=== PATIENT | female | born 1970 | race Hispanic/Latino ===

== ENCOUNTER 2018-12-09 08:21 | Emergency (ER) | payer SELFPAY ==
--- NOTE | 2018-12-09 09:22 | EDPHYS ---
Physician Documentation [facility] Name: Camelia Verdugo Age: 47 yrs Sex: Female : 1970 Arrival Date: 12/09/2018 Time: 08:26 Bed 8 Private MD: None, None ED Physician Curt Mckoy HPI: 12/09 09:20 This 47 yrs old Female presents to ER via Ambulatory with complaints of Rash pm1 to right Breast and back. 09:20 The patient's rash thought to be caused by an unknown cause. The rash is located on the pm1 right breast and right subscapular area. The rash can be described as raised. Onset: The symptoms/episode began/occurred 3 day(s) ago. Associated signs and symptoms: Pertinent positives: fever, nausea, vomiting, Pertinent negatives: burning sensation, Pain. Severity of symptoms: in the emergency department the symptoms are worse. The patient has not experienced similar symptoms in the past. The patient has not recently seen a physician. 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 - Social history:: Smoking status: Patient/guardian denies using tobacco. - Ebola Screening: : Patient negative for fever greater than or equal to 101.5 degrees Fahrenheit, and additional compatible Ebola Virus Disease symptoms Patient denies exposure to infectious person Patient denies travel to an Ebola-affected area in the 21 days before illness onset No symptoms or risks identified at this time. ROS: 09:20 Constitutional: Negative for fever, chills, and weight loss, Eyes: Negative for injury, pm1 pain, redness, and discharge, ENT: Negative for injury, pain, and discharge, Neck: Negative for injury, pain, and swelling, Cardiovascular: Negative for chest pain, palpitations, and edema, Respiratory: Negative for shortness of breath, cough, wheezing, and pleuritic chest pain, Abdomen/GI: Negative for abdominal pain, nausea, vomiting, diarrhea, and constipation, Back: Negative for injury and pain, MS/Extremity: Negative for injury and deformity. 09:20 Skin: Negative for injury, rash, and discoloration, Neuro: Negative for headache, weakness, numbness, tingling, and seizure. 09:20 Skin: Positive for rash, of the right subscapular area and right breast. Exam: 09:20 Constitutional: This is a well developed, well nourished patient who is awake, alert, pm1 and in no acute distress. Head/Face: Normocephalic, atraumatic. Neck: Trachea midline, no thyromegaly or masses palpated, and no cervical lymphadenopathy. Supple, full range of motion without nuchal rigidity, or vertebral point tenderness. No Meningismus. Chest/axilla: Normal chest wall appearance and motion. Nontender with no deformity. No lesions are appreciated. Cardiovascular: Regular rate and rhythm with a normal S1 and S2. No gallops, murmurs, or rubs. Normal PMI, no JVD. No pulse deficits. Respiratory: Lungs have equal breath sounds bilaterally, clear to auscultation and percussion. No rales, rhonchi or wheezes noted. No increased work of breathing, no retractions or nasal flaring. Abdomen/GI: Soft, non-tender, with normal bowel sounds. No distension or tympany. No guarding or rebound. No evidence of tenderness throughout. Back: No spinal tenderness. No costovertebral tenderness. Full range of motion. 09:20 Chest/axilla: Breasts: are normal, no acute changes. 09:20 Skin: Appearance: normal except for affected area, consistent with zoster, Leo Ramirez RN. Vital Signs: 08:41 BP 140 / 79; Pulse 69; Resp 16; Temp 97.9; Pulse Ox 97% on R/A; Weight 92 kg; Height 5 iw ft. 3 in. (160.02 cm); Pain 8/10; 08:41 Body Mass Index 35.93 (92.00 kg, 160.02 cm) iw MDM: 09:01 Patient medically screened. pm1 09:20 Data reviewed: vital signs. Data interpreted: Pulse oximetry: on room air is 97 %. pm1 Interpretation: normal. Counseling: I had a detailed discussion with the patient and/or guardian regarding: the historical points, exam findings, and any diagnostic results supporting the discharge/admit diagnosis, the need for outpatient follow up, to return to the emergency department if symptoms worsen or persist or if there are any questions or concerns that arise at home. Administered Medications: :44 Drug: Valtrex 1000 mg Route: PO; aa5 :45 Follow up: Response: Medication administered at discharge. aa5 :44 Drug: [place] 5 mg-325 mg 1 tabs Route: PO; 5 :45 Follow up: Response: Medication administered at discharge. aa5 Disposition: 12/09/18 09:21 Discharged to Home. Impression: Zoster [herpes zoster]. - Condition is Stable. - Discharge Instructions: Shingles. - Prescriptions for Tylenol- Codeine #3 300-30 mg Oral Tablet - take 2 tablet by ORAL route every 6 hours As needed; 30 tablet. Valtrex 1 g Oral Tablet - take 1 tablet by ORAL route every 8 hours for 7 days; 21 tablet. - Medication Reconciliation Form, Thank You Letter, Antibiotic Education, Prescription Opioid Use form. - Follow up: Emergency Department; When: As needed; Reason: Worsening of condition. Follow up: Private Physician; When: 2 - 3 days; Reason: Recheck today's complaints, Continuance of care, Re-evaluation by your physician. - Problem is new. - Symptoms have improved. Addendum: 12/11/2018 07:27 Co-signature as Attending Physician, Curt Mckoy MD. g s Signatures: Eloisa Gloria RN RN Ashley Morin RN RN aa5 Maximino Ivan, HEALTH PROMOTION OFFICER HEALTH PROMOTION OFFICER pm1 Curt Mckoy MD MD Corrections: (The following items were deleted from the chart) 12/09 09:47 09:21 12/09/2018 09:21 Discharged to Home. Impression: Zoster [herpes zoster]. aa5 Condition is Stable. Forms are Medication Reconciliation Form, Thank You Letter, Antibiotic Education, Prescription Opioid Use. Follow up: Emergency Department; When: As needed; Reason: Worsening of condition. Follow up: Private Physician; When: 2 - 3 days; Reason: Recheck today's complaints, Continuance of care, Re-evaluation by your physician. Problem is new. Symptoms have improved. pm1
--- NOTE | 2018-12-09 09:22 | ER ---
Nurse's Notes [facility] Name: Camelia Verdugo Age: 47 yrs Sex: Female : 1970 Arrival Date: 12/09/2018 Time: 08:26 Bed 8 Private MD: None, None Diagnosis: Zoster [herpes zoster] Presentation: 12/09 08:40 Presenting complaint: Patient states: rash around breast radiating to back X 3 days, iw painful to touch. Transition of care: patient was not received from another setting of care. Onset of symptoms was December 06, 2018. Risk Assessment: Do you want to hurt yourself or someone else? Patient reports no desire to harm self or others. Initial Sepsis Screen: Does the patient meet any 2 criteria? No. Patient's initial sepsis screen is negative. Does the patient have a suspected source of infection? No. Patient's initial sepsis screen is negative. Care prior to arrival: None. 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 - Social history:: Smoking status: Patient/guardian denies using tobacco. - Ebola Screening: : Patient negative for fever greater than or equal to 101.5 degrees Fahrenheit, and additional compatible Ebola Virus Disease symptoms Patient denies exposure to infectious person Patient denies travel to an Ebola-affected area in the 21 days before illness onset No symptoms or risks identified at this time. Screenin:02 Abuse screen: Denies threats or abuse. Nutritional screening: No deficits noted. aa5 Tuberculosis screening: No symptoms or risk factors identified. Fall Risk None identified. Assessment: 08:55 General: Appears uncomfortable, Behavior is calm, cooperative. Pain: Complains of pain aa5 in right lateral anterior chest and under right breast Pain radiates to right scapular area and right subscapular area Pain currently is 8 out of 10 on a pain scale. Quality of pain is described as burning, Pain began 2-3 days ago. Is continuous. Neuro: Level of Consciousness is awake, alert, obeys commands, Oriented to person, place, time, situation. Cardiovascular: Capillary refill < 3 seconds is brisk in bilateral fingers Patient's skin is warm and dry. Respiratory: Airway is patent Respiratory effort is even, unlabored, Respiratory pattern is regular, symmetrical. GI: No signs and/or symptoms were reported involving the gastrointestinal system. : No signs and/or symptoms were reported regarding the genitourinary system. EENT: No signs and/or symptoms were reported regarding the EENT system. Derm: Skin is pink, warm \T\ dry. Rash noted that is red, raised, on right lateral anterior chest and under right breast. Musculoskeletal: Range of motion: intact in all extremities. 09:45 Reassessment: Patient is alert, oriented x 3, equal unlabored respirations, skin aa5 warm/dry/pink. Vital Signs: 08:41 BP 140 / 79; Pulse 69; Resp 16; Temp 97.9; Pulse Ox 97% on R/A; Weight 92 kg; Height 5 iw ft. 3 in. (160.02 cm); Pain 8/10; 08:41 Body Mass Index 35.93 (92.00 kg, 160.02 cm) iw ED Course: 08:26 Patient arrived in ED. dp 08:27 None, None is Private Physician. dp 08:41 Triage completed. iw 08:43 Arm band placed on. iw 08:56 Ashley Morin, RN is Primary Nurse. aa5 08:58 Patient has correct armband on for positive identification. Placed in gown. Bed in low aa5 position. Call light in reach. Side rails up X 1. Adult w/ patient. 09:01 [facility] pm1 09:01 Curt Mckoy MD is Attending Physician. pm1 09:09 No provider procedures requiring assistance completed. aa5 09:45 Patient did not have IV access during this emergency room visit. aa5 Administered Medications: 09:44 Drug: Valtrex 1000 mg Route: PO; aa5 09:45 Follow up: Response: Medication administered at discharge. aa5 09:44 Drug: [place] 5 mg-325 mg 1 tabs Route: PO; aa5 09:45 Follow up: Response: Medication administered at discharge. aa5 Outcome: 09:21 Discharge ordered by . pm1 09:45 Discharged to home ambulatory, with family. aa5 09:45 Condition: stable 09:45 Discharge instructions given to patient, Instructed on discharge instructions, follow up and referral plans. medication usage, Demonstrated understanding of instructions, follow-up care, medications, Prescriptions given X 2. 09:47 Patient left the ED. aa5 Signatures: Eloisa Gloria RN RN iw Ashley Morin RN RN aa5 Maximino Iavn, MARYA LEGAL WORD PROCESSOR pm1 Sulaiman Parra Corrections: (The following items were deleted from the chart) 08:42 08:41 BP 140 / 79; Pulse 69bpm; Resp 16bpm; Pulse Ox 97% RA; Temp 97.9F; 92 kg; Height iw 5 ft. 3 in.; BMI: 35.9; iw 09:21 08:55 Pain: Complains of pain in right lateral anterior chest and under right breast aa5 Pain currently is 8 out of 10 on a pain scale. Quality of pain is described as burning, Pain began 2-3 days ago. Is continuous, aa5
[2018-12-09] MEDS ORDERED: HYDROCODONE/APAP 5/325 MG TAB ONE (09:56)
[2018-12-09] MEDS ORDERED: VALACYCLOVIR 500 MG TAB ONE (09:57)
== END 2018-12-09 09:47 | disposition home or self-care (01) ==
LOC: ER 08:21
DX: B02.9 Zoster without complications (principal)
CPT/HCPCS: 99283